=== PATIENT | female | born 1955 | race Caucasian/White ===

== ENCOUNTER → 2016-08-17 | Outpatient (CLI) | payer OTHER ==
[~2016-08-17] MED LIST: CITALOPRAM20 MG PO; CLOTRIMAZOLE-BETAMET; MECLIZINE12.5 M1 PO; OMEPRAZOLE40 MG PO; VESICARE5 MG; VESICARE5 MG PO
--- NOTE | 2016-08-19 00:50 | RADIOLOGY REPORT PS360 ---
MRI-LOW EXT ANY JOINT W/O-RT MRI RIGHT KNEE ORDERING PHYSICIAN : Papi Wu MD PATIENT AGE: 60 years GENDER: Female INDICATION: PAIN IN RIGHT KNEE, EFFUSION RIGHT KNEE Right knee pain joint effusion pain lateral and posterior knee. Swelling lateral knee. Symptoms 2 weeks. TECHNIQUE: Multiplanar multisequence imaging 1.5 T MR COMPARISON: Right knee 3 views August 04, 2016 FINDINGS Large pleural effusion. Prominent Robertson's cyst. 5 cm length Robertson's cyst X. 2.5 cm AP x 2.5 cm wide. Degenerative changes at the knee most pronounced patellofemoral joint. Tricompartmental marginal osteophytes with are most pronounced about the patellofemoral joint . Only minimal narrowing & degenerative changes medial compartment. Minimal Chondral thinning both sides of medial joint space all. PATELLOFEMORAL JOINT.: Degenerative changes are most here. Diffuse chondral thinning & chondral loss posterior patella, most evident towards lateral joint.. Stippled small osteochondral irregularities at the posterior aspect posterior patella ... . Marginal osteophytes are most evident, about the lateral and superior aspect patellofemoral joint.. Patella satisfactory position. . There is a prominent 14 mm length X 18 mm wide and up to 5 mm deep osteochondral defect* seen involving femoral trochlear groove. This is most evident at the central & medial aspect of the femoral trochlear groove. This defect Involves the anterior most aspect of the femoral condyles towards the femoral trochanter groove where where the patella may articulate with the femur with knee and flexion. (best seen axial slice 14 and sagittal slice 11). .The lateral compartment better maintained and intact. Lateral meniscus intact with no discrete tear. Medial meniscus appears intact. With no tear ACL and PCL intact. Quadriceps and patellar tendon appear intact. There is edema overlying patella and patellar tendon. Requires correlation can reflect minimal inflammation but may merely reflect dependent edema.. The MCL and lateral collateral ligament intact. . There is some mild chondral thinning and scuffing throughout the medial compartment reflecting developing degenerative changes.. There are tricompartmental marginal osteophytes most evident about the patellofemoral joint. Medial compartment. Medial meniscus intact -----IMPRESSION. 1. Large Joint Effusion. 2. Large ROBERTSON'S CYST measuring over 5 cm in length. ( Typical location posterior medial aspect of knee)) 3. OSTEOARTHRITIS changes, most pronounced at Patellofemoral joint ... Diffuse chondral loss & thinning most pronounced along posterior patella. .... Tricompartmental marginal osteophytes most evident at the lateral & superior patellar margins .... Prominent Osteochondral defect * inferior aspect femoral trochanter groove. ...Only Mild arthritic changes medial compartment 4. No meniscal tear.The cruciate and collateral ligaments intact as well
== END ==
LOC: RAD 08-11 13:00
DX: M25.561 Pain in right knee (principal); M25.461 Effusion, right knee

== ENCOUNTER → 2016-09-01 | Outpatient (CLI) | payer OTHER ==
--- NOTE | 2016-09-01 15:10 | RADIOLOGY REPORT PS360 ---
US EXTREMITIES RT LIMITED CLINICAL INDICATION: SYNOVIAL CYST OF POPLITEAL SPACE ORDERING PHYSICIAN: Olman Barton MD PATIENT AGE: 60 years COMPARISON: MRI of 08/17/2016 FINDINGS: A complex Robertson's cyst is present along the posterior aspect of the right knee medially which measures 4.4 x 2.5 x 1.4 cm. There is internal debris within the cyst with synechiae noted. IMPRESSION: Complex appearing 4 x 2.5 cm Robertson's cyst
--- NOTE | 2016-09-01 15:12 | RADIOLOGY REPORT PS360 ---
US CYST ASPIRATION, FNA/W GUIDANCE CLINICAL INDICATION: SYNOVIAL CYST OF POPLITEAL SPACE ORDERING PHYSICIAN: Olman Barton MD PATIENT AGE: 60 years COMPARISON: Ultrasound of the same day and MRI of 08/17/2016 TECHNIQUE: Following obtaining informed consent under aseptic conditions and local anesthesia with 1% buffered lidocaine, 20-gauge Angiocath needle was inserted into the Robertson's cyst with sonographic guidance. The cyst was aspirated. Approximate 7 cc of serous fluid was aspirated. The patient tolerated the procedure well without evidence of immediate complication. There was minimal amount of fluid suspected medially. 25-gauge view was inserted in this area. No additional aspirate could be obtained. This may only represent thickened synovium and/or thick debris within the residual cavity. The cyst however was nearly completely aspirated. No immediate complications. Patient left the radiology suite in stable condition IMPRESSION: Successful sonographic guided Robertson's cyst aspiration as described above without evidence of immediate complication.
== END ==
LOC: RAD 09:54
PROC: 0Y9F3ZX Drainage of Right Knee Region, Percutaneous Approach, Diagnostic (ICD-10-PCS; principal; 2016-09-01)
DX: M71.21 Synovial cyst of popliteal space [Baker], right knee (principal)

== ENCOUNTER → 2016-12-29 | Outpatient (CLI) | payer OTHER ==
[~2016-12-29] MED LIST changes: +ALLEGRA ALLERGY60 MG PO; +ASPIRIN 81MG TA81 MG PO; +BACLOFEN 10MG T10 MG PO; +CELEXA40 M1 PO; +LIPITOR40 MG PO; +TORADOL10 MG PO; +VISTARIL25 M1 PO
[2016-12-29 09:15] LABS: LYMPH # 1.3 K/mm3 (0.7-4.5); LYMPH % 29.7 % (10-50.0)
[2016-12-29 10:23] LABS: BUN 15 mg/dL (7-18)
[2016-12-29 10:26] LABS: GFR (ESTIMATED) 72 ML/MIN (59-)
[2016-12-30 09:37] LABS: Folate (Folic Acid) 9.5 ng/mL (>3.0); Vitamin B12 670 pg/mL (211-946)
[2016-12-30 20:35] LABS: Antinuclear Antibodies, IFA Negative (.)
== END ==
LOC: LAB 08:21
PROVIDERS: Specialist
DX: R51 Headache (principal); R41.3 Other amnesia; Z85.3 Personal history of malignant neoplasm of breast

== ENCOUNTER → 2017-04-12 | Outpatient (CLI) | payer OTHER ==
[~2017-04-12] MED LIST changes: +FEXOFENADINE60 MG PO; +TOPAMAX100 MG PO
--- NOTE | 2017-04-14 20:43 | RADIOLOGY REPORT PS360 ---
DIG MAMM-SCREEN UNI-LT W/CAD CAD Screening COMPARISON: Digital left mammogram 08/27/2015 and 10/12/2014 INDICATION: There is been previous right mastectomy. There is a history of breast cancer in patient's mother. TECHNIQUE: Standard CC and MLO images were obtained. R2 CAD reviewed. FINDINGS: Moderate scattered fibroglandular densities are seen in the left breast. There is no new or suspicious lesion and there are no suspicious microcalcifications. IMPRESSION: Stable exam with no suspicious lesion seen recommend yearly follow-up BI-RADS CATEGORY: 1_Negative RECOMMENDED FOLLOWUP: 12M 12 MONTH FOLLOW-UP (A letter has been sent to the patient regarding results of the study.)
== END ==
LOC: RAD 09:00
DX: Z12.31 Encounter for screening mammogram for malignant neoplasm of breast (principal)
CPT/HCPCS: G0202-LT-52